=== PATIENT | female | born 1970 | race Caucasian/White ===

== ENCOUNTER 2018-04-06 07:49 | Emergency (ER) | payer MEDICAID ==
[2018-04-06] MEDS ORDERED: IPRATROPIUM/ALBUTEROL 3 ML DEYVIAL IH ONE (08:06)
--- NOTE | 2018-04-06 08:06 | EDPHY ---
H & P Time Seen by Provider: 04/06/18 08:01 HPI/ROS: This patient saw her primary care physician last Wednesday with onset of URI symptoms consisting of coryza and dry cough that started to trigger her asthma with wheezing as well. She had negative influenza swab at that time and reports some low-grade fevers associated with her dry cough but ongoing wheezing and shortness of breath despite use of her inhaler. She also had a prescription for prednisone which she felt and took 40 mg a day for the past few days and has been weaning down over the past few days down to 10 mg today. She reports mild dyspnea, frequent dry cough and associated wheezing consistent with prior asthma episodes. She arrived by private vehicle ROS: Constitutional: No high fevers HEENT: Hoarse voice but denies sore throat. No sinus pain. No ear pain Pulmonary: No pleuritic pain. No hemoptysis. No respiratory distress Cardiovascular: No lightheadedness. No calf swelling or pain. GI: No nausea or vomiting Integumentary: No rash or diaphoresis Neuro: No complaints 10 point review of symptoms is performed and otherwise negative with exception of pertinent positives and negatives listed in HPI and ROS Past Medical/Surgical History: Asthma Smoking Status: Heavy smoker Physical Exam: General Appearance: Alert, no distress. Eyes: Pupils equal and round no pallor or injection. ENT, Mouth: Mucous membranes moist. Hoarse voice but no drooling or stridor Respiratory: Wheezing bilaterally with rhonchi bilaterally. Cardiovascular: Regular rate and rhythm. Gastrointestinal: Abdomen is soft and nontender, no masses, bowel sounds normal. Neurological: GCS 15. Skin: Warm and dry, no rashes. Musculoskeletal: Neck is supple nontender. Extremities are symmetrical, full range of motion. Psychiatric: Mood and affect are normal DIFFERENTIAL DIAGNOSIS: After history and physical exam differential diagnosis was considered for URI with cough and asthma exacerbation, bronchitis, pneumonia Constitutional: Initial Vital Signs Temperature (C) 36.7 C 04/06/18 07:57 Heart Rate 77 04/06/18 07:57 Respiratory Rate 20 04/06/18 07:57 Blood Pressure 121/81 H 04/06/18 07:57 O2 Sat (%) 92 04/06/18 07:57 O2 Delivery Mode Room Air Allergies/Adverse Reactions: codeine [Codeine] Allergy (Verified 04/06/18 07:56) hydromorphone HCl [From Dilaudid] Allergy (Verified 04/06/18 07:56) morphine Allergy (Verified 04/06/18 07:56) Penicillins Allergy (Verified 04/06/18 07:56) Home Medications: Medication Instructions Recorded Albuterol [Albuterol HFA 8 gm] 2 puffs IH QID #1 mdi 05/30/15 Multivitamin (OTC) 05/30/15 Albuterol Hfa Anes Only [Proair 2 mdi IH QID PRN #1 mdi 07/24/15 Hfa Icu (*)] Azithromycin [Zithromax] 250 mg PO DAILY #6 tab 04/06/18 Prednisone 04/06/18 predniSONE 60 mg PO DAILY #15 tab 04/06/18 MDM/Departure - MDM Medications Given: Discontinued Medications Albuterol/Ipratropium (Duoneb) 3 ml IH EDNOW ONE Stop: 04/06/18 08:07 Last Admin: 04/06/18 08:20 Dose: 3 ml Prednisone (Prednisone) 60 mg PO EDNOW ONE Stop: 04/06/18 08:08 Last Admin: 04/06/18 08:20 Dose: 60 mg ED Course/Re-evaluation: Peak flow prior to treatment was 350 with expected 460 Patient had a DuoNeb with subjective improvement increased aeration with decreased wheeze She received treatment with prednisone 60 mg p.o. As well Discussion: Findings consistent with bronchitis in a smoker with asthma exacerbation is mild. Counseled regarding the importance of smoking cessation. I do not find any clinical evidence of lower respiratory infection. She had a negative flu swab last week and has any high fevers. No red flag findings on this patient cough. However she understands need to return emergency department should she develop any significant worsening of her symptoms despite treatment plan of Zithromax, albuterol and prednisone - Depart Disposition: Home, Routine, Self-Care Condition: Good Instructions: Acute Bronchitis (ED), Asthma (ED), How to Stop Smoking (ED) Additional Instructions: Diagnosis: Acute bronchitis 2. Asthma Plan: Quit smoking Humidifier Zithromax antibiotic Prednisone Continue your albuterol that use a spacer with a Follow up with primary care physician for any ongoing symptoms that persist beyond the next 5-7 days Return emergency department for any significant worsening despite treatment plan. Prescriptions: Azithromycin [Zithromax] 250 mg PO DAILY #6 tab predniSONE 60 mg PO DAILY #15 tab Referrals: FAMILY,[facility] [Other] - As per Instructions
[2018-04-06] MEDS ORDERED: predniSONE 20 MG TAB PO ONE (08:07)
[2018-04-06 09:31] VITALS: BP 114/67
== END 2018-04-06 09:25 | disposition home or self-care (01) ==
LOC: CED 07:49
DX: J44.1 Chronic obstructive pulmonary disease with (acute) exacerbation (principal); F17.200 Nicotine dependence, unspecified, uncomplicated
CPT/HCPCS: J7512